=== PATIENT | female | born 1970 | race Caucasian/White ===

== ENCOUNTER → 2019-01-14 16:27 | Outpatient (CLI) | payer BC, SELFPAY ==
--- NOTE | 2019-01-14 16:39 | XR_ITS ---
PROCEDURE: XR FOOT WT BEARING LT 3V CLINICAL INDICATION: pain COMPARISON: No exams were available for comparison FINDINGS: No fracture or dislocation. No lytic or blastic change. There is normal mineralization. The joint spaces are well-preserved. No significant degenerative/arthritic changes. No erosive changes evident. Other findings:Mild pes planus IMPRESSION: Pes planus otherwise negative Dictated by: Tavo Werner MD 01/14/2019 16:55 <Electronically signed by Tavo Werner MD in [place]> 01/14/2019 16:55
--- NOTE | 2019-01-14 16:39 | XR_ITS ---
PROCEDURE: XR FOOT WT BEARING RT 3V CLINICAL INDICATION: pain COMPARISON: No exams were available for comparison FINDINGS: No fracture or dislocation. No lytic or blastic change. There is normal mineralization. The joint spaces are well-preserved. No significant degenerative/arthritic changes. No erosive changes evident. Other findings:None. IMPRESSION: Negative right foot Dictated by: Tavo Werner MD 01/14/2019 16:55 <Electronically signed by Tavo Werner MD in OV> 01/14/2019 16:56
== END ==
PROVIDERS: PCP Internal Medicine; Visit Provider Podiatrist
DX: M79.672 Pain in left foot (principal); M79.671 Pain in right foot
CPT/HCPCS: 73630

== ENCOUNTER 2024-03-22 16:53 | Emergency (ER) | payer BC, SELFPAY ==
[2024-03-22 17:05] VITALS: BP 162/93; PULSE 97; RESP 22; TEMP 37.2; O2SAT 94; BMI 30.7
--- NOTE | 2024-03-22 17:14 | ED_ITS ---
Discharge Plan Disposition Patient Disposition: Home, Self-Care Condition: Good Prescriptions Prescriptions: New prednisone 20 mg tablet 20 mg PO BID Qty: 10 0RF albuterol sulfate 90 mcg/actuation HFA aerosol inhaler 1 inh inhalation Q6H PRN (Reason: shortness of breath or wheezing) Qty: 6.7 0RF No Action levothyroxine 125 mcg tablet 125 mcg PO DAILY Patient Comments: TAKE 1 TABLET BY MOUTH ONCE DAILY losartan 25 mg tablet 25 mg PO DAILY Patient Comments: TAKE 1 TABLET BY MOUTH ONCE DAILY Referrals Follow up/Referrals: Kosta Mo [Primary Care Provider] - See instructions Activity Restrictions/Add. Instructions Additional Instructions/Restrictions: Tylenol and ibuprofen as needed for pain or fever Humidifier/vaporizer/hot steamy shower Follow-up with primary care tomorrow. Follow-up immediately in the ER of the [facility] for new or worsening symptoms or no noticeable improvement over the next 48-72 hours. Stop smoking Inhaler every 4-6 hours as needed. Should help open airways improved cough, wheezing, shortness of breath Start steroids today. Helps with inflammation therefore coughing and wheezing. Follow directions on package. Clinical Impressions Clinical Impression: Acute bronchitis Instructions Patient Instructions: DI for Acute Bronchitis Print Language Print Language: Barbadian Discharge ED Provider: Dian ([facility])Elpidio [facility] [place] HPI General Stated complaint: cough Mode of Arrival: Ambulatory Source of Information: Patient Limitations: No Limitations Time Seen by Provider: 03/22/24 17:08 Description of Symptoms (Recalled from Triage Doc. by RN): PATIENT C/O COUGH X 2 WEEKS HEENT Symptoms (Recalled from RN notes): No Resp Symptoms (Recalled from RN notes): Yes Skin Symptoms (Recalled from RN notes): No MS Symptoms (Recalled from RN notes): No Functional Status (Recalled from RN notes): WNL History of Present Illness Provider Complaint: 83-year-old female presents for cough for 2 weeks. Patient states that started out with chills and a fever but the fever only lasted for 2 days. Patient states since then she just had a persistent nonproductive cough. Related Data Home Medications ?Medication ?Instructions ?Recorded ?Confirmed levothyroxine 125 mcg tablet 125 mcg PO DAILY 03/22/24 03/22/24 losartan 25 mg tablet 25 mg PO DAILY 03/22/24 03/22/24 Previous Rx's ?Medication ?Instructions ?Recorded albuterol sulfate 90 mcg/actuation 1 inh inhalation Q6H PRN shortness 03/22/24 aerosol inhaler of breath or wheezing #6.7 grams prednisone 20 mg tablet 20 mg PO BID #10 tabs 03/22/24 Allergies Allergy/AdvReac Type Severity Reaction Status Date / Time fentanyl AdvReac Severe Verified 02/17/19 13:11 Worker's Comp Is this a Worker's Comp case?: No PFSH PFS Disclaimer: The information contained in this section may have been updated after the patient was seen, as this information can be updated by other users. Social History (Reviewed 03/22/24 @ 17:15 by Elpidio Biggs ([facility]), HELMINTHOLOGY TEACHER) Smoking Status: Never smoker alcohol intake: never current occupational status: employed Travel in the last 8 weeks: None ROS Obtained: Yes Systems reviewed as appropriate & no additional complaints except as documented Constitutional Constitutional: Reports system reviewed and no additional complaints, except as documented, Reports as per HPI and Reports fever(s) Respiratory Respiratory: Reports system reviewed and no additional complaints, except as documented, Reports as per HPI, Reports cough and Reports non-productive cough Physical Exam General General appearance: alert and in no apparent distress Head Head exam: atraumatic Eye Eye exam: Present normal appearance and PERRL ENT ENT exam: Present normal exam, normal oropharynx, mucous membranes moist and TM's normal bilaterally Respiratory Respiratory exam: Present wheezes Cardiovascular Cardiovascular exam: Present regular rate and normal rhythm Neurological Exam Neurological exam: Present alert and oriented X3 Skin Skin exam: Present warm and intact Medical Decision Making Medical Records Medical records reviewed: Yes I reviewed the patient's medical records. Screening: Per USPSTF and CDC recommendations, given the prevalence of disease in our region, it is our hospital?s policy to screen for HIV and viral Hepatitis for all patients aged 18 and over and those with ongoing risk factors. Jae Inquiry Pt receiving controlled substance: No Jae was queried for this patient: No Vital Signs: 03/22/24 17:05 Temperature 98.9 F Temperature Source Oral Pulse Rate [Left Brachial] 97 H Respiratory Rate 22 Blood Pressure [Left Arm] 162/93 H Blood Pressure Mean [Left Arm] 116 Blood Pressure Source [Left Arm] Automatic Cuff Blood Pressure Position [Left Arm] Sitting 02 Sat by Pulse Oximetry 94 L Oxygen Delivery Method Room Air
[2024-03-22 17:22] VITALS: BP 162/93; PULSE 97; RESP 22; TEMP 37.2; O2SAT 94
== END 2024-03-22 17:26 | disposition home or self-care (01) ==
PROVIDERS: Emergency Provider Nurse Practitioner Family; PCP Internal Medicine
DX: J20.9 Acute bronchitis, unspecified (principal)
CPT/HCPCS: 99213; G0381

== ENCOUNTER 2024-05-03 15:28 | Emergency (ER) | payer BC, SELFPAY ==
[2024-05-03 17:20] VITALS: BP 147/81; PULSE 93; RESP 17; TEMP 36.9; O2SAT 97; BMI 30.9
--- NOTE | 2024-05-03 17:31 | EXP.UTC ---
Discharge Plan Disposition Patient Disposition: Home, Self-Care Condition: Good Prescriptions Prescriptions: New polymyxin B sulf-trimethoprim 10,000 unit- 1 mg/mL drops 2 drp Eye-Both Q6 7 Days Qty: 10 0RF Rx Instructions: right eye while awake; do not exceed 6 doses in 24 hours No Action levothyroxine 125 mcg tablet 125 mcg PO DAILY Patient Comments: TAKE 1 TABLET BY MOUTH ONCE DAILY losartan 25 mg tablet 25 mg PO DAILY Patient Comments: TAKE 1 TABLET BY MOUTH ONCE DAILY prednisone 20 mg tablet 20 mg PO BID Qty: 10 0RF albuterol sulfate 90 mcg/actuation HFA aerosol inhaler 1 inh inhalation Q6H PRN (Reason: shortness of breath or wheezing) Qty: 6.7 0RF Referrals Follow up/Referrals: Kosta Mo [Primary Care Provider] - See instructions Activity Restrictions/Add. Instructions Additional Instructions/Restrictions: Wash hands before and after applying eye drops Clean matting from eye with warm water and baby shampoo Use drops as directed Follow up with your Eye Doctor in the next 24-48 hours if no improvement or any worsening of symptoms Clinical Impressions Clinical Impression: Conjunctivitis Qualifiers: Conjunctivitis type: unspecified Laterality: right Qualified Code(s): H10.9 - Unspecified conjunctivitis Instructions Patient Instructions: How to Put in Eye Drops, Conjunctivitis, DI for Conjunctivitis Print Language Print Language: Egyptian Discharge ED Provider: Tahmina Irwin [facility] General Stated complaint: pink and red right eye with swelling Time Seen by Provider: 05/03/24 17:31 History of Present Illness Provider Complaint: Patient states that her right eye was fine when she laid down last night States that she woke up this morning with it swollen, red, matted and draining States today it is looking more red and draining Denies known injury Denies feeling of FB report did have a URI last week Related Data Home Medications ?Medication ?Instructions ?Recorded ?Confirmed levothyroxine 125 mcg tablet 125 mcg PO DAILY 03/22/24 03/22/24 losartan 25 mg tablet 25 mg PO DAILY 03/22/24 03/22/24 Previous Rx's ?Medication ?Instructions ?Recorded albuterol sulfate 90 mcg/actuation 1 inh inhalation Q6H PRN shortness 03/22/24 aerosol inhaler of breath or wheezing #6.7 grams prednisone 20 mg tablet 20 mg PO BID #10 tabs 03/22/24 polymyxin B sulfate 10,000 2 drp Eye-Both Q6 7 days #10 mL 05/03/24 unit-trimethoprim 1 mg/mL eye drops Allergies Allergy/AdvReac Type Severity Reaction Status Date / Time fentanyl AdvReac Severe Verified 02/17/19 13:11 [facility] Disclaimer: The information contained in this section may have been updated after the patient was seen, as this information can be updated by other users. Social History , [employer]) Smoking Status: Never smoker alcohol intake: never current occupational status: employed Travel in the last 8 weeks: None Have you lived/traveled outside US in past 30 days?: No Contact w/someone who lives/traveled outside US past 30 days?: No Exposure to someone with infectious disease in past 14 days?: No Do you have a fever (greater than 100.4 F or 38 C)?: No Have you tested positive for COVID-19: No Exposed to someone with COVID-19 in past 14 days?: No Do you have a sore throat?: Yes Do you have a cough?: Yes Do you have any weakness?: No Do you have any diarrhea?: No Are you experiencing any unusual bleeding?: No Do you have any muscle aches/pain?: No Do you have any abdominal pain?: No Are you experiencing loss of taste or smell?: No ROS Obtained: Yes All systems reviewed & no additional complaints except as documented and Yes Systems reviewed as appropriate & no additional complaints except as documented Constitutional Constitutional: Reports system reviewed and no additional complaints, except as documented and Reports as per HPI Eyes Eyes: Reports system reviewed and no additional complaints, except as documented, Reports as per HPI, Reports eye discharge (watering and matting from right eye) and Reports irritation (redness and matting to right) ENT Ears, Nose, Mouth, and Throat: Reports system reviewed and no additional complaints, except as documented and Reports as per HPI Cardiovascular Cardiovascular: Reports system reviewed and no additional complaints, except as documented and Reports as per HPI Respiratory Respiratory: Reports system reviewed and no additional complaints, except as documented and Reports as per HPI Gastrointestinal Gastrointestingal: Reports system reviewed and no additional complaints, except as documented and as per HPI Physical Exam General General appearance: alert and in no apparent distress Eye Eye exam: Present conjunctival redness (redness noted to right eye denies injury or feeling of FB) and discharge (right) Respiratory Respiratory exam: Present normal lung sounds bilaterally; Absent respiratory distress or wheezes Cardiovascular Cardiovascular exam: Present regular rate, normal rhythm and normal heart sounds Abdominal Exam Abdominal exam: Present soft and normal bowel sounds; Absent distention or tenderness Neurological Exam Neurological exam: Present alert, oriented X3 and normal gait Medical Decision Making Medical Records Screening: Per USPSTF and CDC recommendations, given the prevalence of disease in our region, it is our hospital?s policy to screen for HIV and viral Hepatitis for all patients aged 18 and over and those with ongoing risk factors. Jae Inquiry Pt receiving controlled substance: No Jae was queried for this patient: No
[2024-05-03 17:45] VITALS: BP 147/81; PULSE 93; RESP 17; TEMP 36.9; O2SAT 97
== END 2024-05-03 17:47 | disposition home or self-care (01) ==
PROVIDERS: Emergency Provider Nurse Practitioner; PCP Internal Medicine
DX: H10.9 Unspecified conjunctivitis (principal)
CPT/HCPCS: 99213; G0381

== ENCOUNTER 2024-05-09 10:58 | Emergency (ER) | payer BC, SELFPAY ==
[2024-05-09 12:08] VITALS: BP 163/103; PULSE 110; RESP 20; TEMP 36.9; O2SAT 96; BMI 30.4
--- NOTE | 2024-05-09 12:11 | EXP.UTC ---
Discharge Plan Disposition Patient Disposition: Home, Self-Care Condition: Good Prescriptions Prescriptions: New azithromycin [Zithromax] 250 mg tablet 250 mg PO UD DOSE PK Qty: 6 0RF Rx Instructions: Take two (2) tablets today, then one (1) tablet days #2 thru #5 prednisone 20 mg tablet 20 mg PO BID 3 Days Qty: 6 0RF benzonatate 100 mg capsule 100 mg PO TIDP PRN (Reason: Cough) Qty: 30 0RF No Action levothyroxine 125 mcg tablet 125 mcg PO DAILY Patient Comments: TAKE 1 TABLET BY MOUTH ONCE DAILY losartan 25 mg tablet 25 mg PO DAILY Patient Comments: TAKE 1 TABLET BY MOUTH ONCE DAILY Referrals Follow up/Referrals: Kosta Mo [Primary Care Provider] - See instructions Activity Restrictions/Add. Instructions Additional Instructions/Restrictions: Drink plenty of fluids. Take tylenol or ibuprofen for pain or fever. Take the medications as directed. Follow up with your regular doctor. GO TO THE ER FOR ANY WORSENING SYMPTOMS Follow up with your eye doctor if you continue to have the eye redness and irritation. Clinical Impressions Clinical Impression: Sinusitis, Pharyngitis, Acute viral syndrome Instructions Patient Instructions: Sinusitis, DI for Pharyngitis/Tonsillopharyngitis -- Adult, DI for Sinusitis Print Language Print Language: New Zealander Discharge ED Provider: Froilan Alicea [facility] General Stated complaint: soa diff swallowing swollen eyes Mode of Arrival: Ambulatory Source of Information: Patient Time Seen by Provider: 05/09/24 12:11 Description of Symptoms (Recalled from Triage Doc. by RN): ITCHY, RED, SWOLLEN EYES, SCRATCHY THROAT, SNOTTY NOSE HEENT Symptoms (Recalled from RN notes): Yes Resp Symptoms (Recalled from RN notes): No Skin Symptoms (Recalled from RN notes): No MS Symptoms (Recalled from RN notes): No Functional Status (Recalled from RN notes): WNL Related Data Home Medications ?Medication ?Instructions ?Recorded ?Confirmed levothyroxine 125 mcg tablet 125 mcg PO DAILY 03/22/24 05/09/24 losartan 25 mg tablet 25 mg PO DAILY 03/22/24 05/09/24 Previous Rx's ?Medication ?Instructions ?Recorded azithromycin 250 mg tablet 250 mg PO UD DOSE PK #6 tabs 05/09/24 (Zithromax) benzonatate 100 mg capsule 100 mg PO TIDP PRN Cough #30 caps 05/09/24 prednisone 20 mg tablet 20 mg PO BID 3 days #6 tabs 05/09/24 Allergies Allergy/AdvReac Type Severity Reaction Status Date / Time fentanyl AdvReac Severe Verified 02/17/19 13:11 Worker's Comp Is this a Worker's Comp case?: No [facility] Disclaimer: The information contained in this section may have been updated after the patient was seen, as this information can be updated by other users. Social History (Reviewed 03/22/24 @ 17:15 by Elpidio Biggs ([facility]), [employer]) Smoking Status: Never smoker alcohol intake: never current occupational status: employed Travel in the last 8 weeks: None Have you lived/traveled outside US in past 30 days?: No Contact w/someone who lives/traveled outside US past 30 days?: No Exposure to someone with infectious disease in past 14 days?: Yes Do you have a fever (greater than 100.4 F or 38 C)?: No Have you tested positive for COVID-19: No Exposed to someone with COVID-19 in past 14 days?: No Do you have a sore throat?: Yes Do you have a cough?: No Do you have any weakness?: No Do you have any diarrhea?: No Are you experiencing any unusual bleeding?: No Do you have any muscle aches/pain?: No Do you have any abdominal pain?: No Are you experiencing loss of taste or smell?: No ROS Obtained: Yes All systems reviewed & no additional complaints except as documented Constitutional Constitutional: Reports chills and Reports fever(s) Eyes Eyes: Denies eye discharge ENT Ears, Nose, Mouth, and Throat: Reports as per HPI Cardiovascular Cardiovascular: Denies chest pain Respiratory Respiratory: Denies chest congestion and Reports cough Gastrointestinal Gastrointestingal: Reports nausea; Denies abdominal pain, constipation, cramping, diarrhea or vomiting Musculoskeletal Musculoskeletal: Denies arthralgias Integumentary/Breasts Skin/Breast: Denies rash Neurologic Neurologic: Denies paresthesias Physical Exam General General appearance: alert and in no apparent distress Head Head exam: atraumatic, normocephalic and normal inspection Eye Eye exam: Present normal appearance, PERRL and EOMI ENT ENT exam: Present mucous membranes moist and normal external ear exam Expanded ENT Exam TM/Canal exam: Bilateral TM: erythema and bulging Nose exam: Absent sinus tenderness Mouth exam: Present normal external inspection; Absent drooling Teeth exam: Present normal inspection Throat exam: Present tonsillar erythema, tonsillomegaly and tonsillar exudate Neck Neck exam: Present normal inspection, full ROM and trachea midline; Absent tenderness, meningismus or lymphadenopathy Chest Chest inspection: Present normal inspection and symmetric chest wall rise; Absent tenderness Respiratory Respiratory exam: Present normal lung sounds bilaterally; Absent respiratory distress, wheezes, stridor or accessory muscle use Cardiovascular Cardiovascular exam: Present regular rate and normal rhythm; Absent systolic murmur or diastolic murmur Abdominal Exam Abdominal exam: Present soft and normal bowel sounds; Absent distention, tenderness, guarding, rebound or rigidity Extremities Exam Extremities exam: Present normal inspection and normal capillary refill; Absent calf tenderness Back Exam Back exam: Present normal inspection and full ROM; Absent tenderness, CVA tenderness (R) or CVA tenderness (L) Neurological Exam Neurological exam: Present alert, oriented X3 and CN II-XII intact Psychiatric Psychiatric exam: Present normal affect and normal mood Skin Skin exam: Present warm, dry, intact and normal color Medical Decision Making Medical Records Medical records reviewed: No I reviewed the patient's medical records. Screening: Per USPSTF and CDC recommendations, given the prevalence of disease in our region, it is our hospital?s policy to screen for HIV and viral Hepatitis for all patients aged 18 and over and those with ongoing risk factors. Jae Inquiry Pt receiving controlled substance: No Vital Signs: 05/09/24 12:08 Temperature 98.4 F Temperature Source Oral Pulse Rate [Left Brachial] 110 H Respiratory Rate 20 Blood Pressure [Left Arm] 163/103 H Blood Pressure Mean [Left Arm] 123 02 Sat by Pulse Oximetry 96 Lab Data Lab results reviewed: Yes I reviewed the patient's lab results.
[2024-05-09 12:18] LABS: UTC Strep Screen (Rapid) Negative (Negative)
[2024-05-09 12:19] VITALS: BP 163/103; PULSE 110; RESP 20; TEMP 36.9
== END 2024-05-09 13:19 | disposition home or self-care (01) ==
PROVIDERS: Emergency Provider Nurse Practitioner Family; PCP Internal Medicine
DX: J01.90 Acute sinusitis, unspecified (principal); J02.9 Acute pharyngitis, unspecified; B34.9 Viral infection, unspecified; R50.9 Fever, unspecified; R05.9 Cough, unspecified; R11.0 Nausea
CPT/HCPCS: 87880; 99212; G0381

== ENCOUNTER 2024-12-23 12:11 | Outpatient (CLI) | payer BC, SELFPAY ==
--- OUTSIDE RECORDS SUMMARY | 2020-12-27 16:30 | XMS_ITS | Encounter Summary ---
[facility] Organization [facility] Address [address] [place] [address] Care Team Providers Care Business Office Coordinator Name Role Phone Kosta Mo MD Primary Care Provider [phone] Reason for Visit * Diagnostic Imaging (Routine) - Closed Specialty Diagnoses / Procedures Referred By Contac t Referred To Contact Radiology Diagnoses Papillary thyroid carcinoma Procedures US Thyroid Garrick Wayne MD [address] [address] Phone: tel: fax: [facility] 3084 [facility] [address] [place] [phone] Phone: tel: fax: Referral ID Status Reason Start Date Expiration Date Visits Re quested Visits Authorized [id number] Closed 12/27/2020 12/27/2021 1 1 Encounter Details Date Type Department Care Team (Late st Contact Info) Description 12/27/2020 4:30 PM EDT Hospital Encounter [facility] 3084 [facility] [address] [place] [phone] Social History Tobacco Use Types Packs/Day [...] Description 02/17/2025 3:45 PM EDT Office Visit [facility] ENDOCR[facility] [address] [phone] Garrick Wayne MD [address] [phone] 09/15/2025 3:00 PM EDT Office Visit [facility] CARDI[facility] [address] [place] [address] Tati Hurd APRN [address] [place] [address] documented as of this encounter Procedures Procedure Name Priority Date/Time Associated Diagnosis Comments US THYROID Routine 12/27/2020 4:30 PM EDT Papillary thyroid carcinoma documented in this encounter Results * US Thyroid (12/27/2020 4:30 PM EDT) Narrative SYSTEMGENERATED, DOCUMENTATION - 12/27/2020 4:30 PM EDT Please see performing physician's note for result. us Garrick Wayne MD [facility] [place] US ORDERABLES Final R esult documented in this encounter Visit Diagnoses Not on filedocumented in this encounter Care Teams Business Office Coordinator Relationship Specialty Start Date End Date Kosta Mo MD [address] [place] [address] [place] [address] PCP - General Internal Medicine 09/18/18 documented as of this encounter
--- OUTSIDE RECORDS SUMMARY | 2022-01-01 16:04 | XMS_ITS | Encounter Summary ---
[facility] Address [address] [place] [address] Care Team Providers Care Employment Advisor Name Role Phone Kosta Mo MD Primary Care Provider [phone] Reason for Visit * Diagnostic Imaging (Routine) - Closed Specialty Diagnoses / Procedures Referred By Contac t Referred To Contact Radiology Diagnoses Papillary thyroid carcinoma Procedures US Thyroid Garrick Wayne MD [address] [address] Phone: tel: fax: [facility] [address] [address] Phone: tel: fax: Referral ID Status Reason Start Date Expiration Date Visits Re quested Visits Authorized [id number] Closed 01/01/2022 01/01/2023 1 1 Encounter Details Date Type Department Care Team (Late st Contact Info) Description 01/01/2022 4:04 PM EDT Hospital Encounter [facility] 3084 [facility] [address] [place] [phone] Social History Tobacco Use Types Packs/Day [...] Description 02/17/2025 3:45 PM EDT Office Visit [facility] [address] [phone] Garrick Wayne MD [address] [phone] 09/15/2025 3:00 PM EDT Office Visit [facility] CARDI[facility] [address] [place] [phone] Tati Hurd APRN [address] [place] [address] documented as of this encounter Procedures Procedure Name Priority Date/Time Associated Diagnosis Comments US THYROID Routine 01/01/2022 4:04 PM EDT Papillary thyroid carcinoma documented in this encounter Results * US Thyroid (01/01/2022 4:04 PM EDT) Narrative SYSTEMGENERATED, DOCUMENTATION - 01/01/2022 4:04 PM EDT Please see performing physician's note for result. us Garrick Wayne MD [facility] US ORDERABLES Final R esult documented in this encounter Visit Diagnoses Not on filedocumented in this encounter Care Teams Employment Advisor Relationship Specialty Start Date End Date Kosta Mo MD [address] [place] [address] [place] [address] PCP - General Internal Medicine 09/18/18 documented as of this encounter
--- OUTSIDE RECORDS SUMMARY | 2023-01-01 16:14 | XMS_ITS | Encounter Summary ---
[facility] Address [address] [place] [address] Care Team Providers Care Healthcare Receptionist Name Role Phone Kosta Mo MD Primary Care Provider [phone] Reason for Visit * Diagnostic Imaging (Routine) - Closed Specialty Diagnoses / Procedures Referred By Contac t Referred To Contact Radiology Diagnoses Papillary thyroid carcinoma Procedures US Thyroid Garrick Wayne MD [address] [address] Phone: tel: fax: Referral ID Status Reason Start Date Expiration Date Visits Re quested Visits Authorized [id number] Closed 01/01/2023 01/01/2024 1 1 Encounter Details Date Type Department Care Team (Late st Contact Info) Description 01/01/2023 4:14 PM EDT Hospital Encounter [facility] [address] [phone] Social History Tobacco Use Types [...] Description 02/17/2025 3:45 PM EDT Office Visit [facility] [address] [facility] [address] [place] [address] Garrick Wayne MD 3084 [facility] [address] [place] [address] 09/15/2025 3:00 PM EDT Office Visit [facility] C[facility] [address] [place] [address] Tati Hurd APRN [address] [place] [address] documented as of this encounter [...] on filedocumented in this encounter Care Teams Healthcare Receptionist Relationship Specialty Start Date End Date Kosta Mo MD [address] [place] [address] PCP - General Internal Medicine 09/18/18 documented as of this encounter
--- OUTSIDE RECORDS SUMMARY | 2024-01-21 15:54 | XMS_ITS | Encounter Summary ---
Author Organization [facility] Address [address] [place] [address] Care Team Providers Care Organ Pipe Maker Metal Name Role Phone Kosta Mo MD Primary Care Provider [phone] Reason for Visit * Diagnostic Imaging (Routine) - Closed Specialty Diagnoses / Procedures Referred By Contac t Referred To Contact Radiology Diagnoses Papillary thyroid carcinoma Procedures US Thyroid Garrick Wayne MD [address] [address] Phone: tel: fax: Referral ID Status Reason Start Date Expiration Date Visits Re quested Visits Authorized [id number] Closed 01/21/2024 01/20/2025 1 1 Encounter Details Date Type Department Care Team (Late st Contact Info) Description 01/21/2024 3:54 PM EDT Hospital Encounter [facility] [address] [phone] Social History Tobacco Use Types [...] Description 02/17/2025 3:45 PM EDT Office Visit [facility] 3084 [facility] [address] [place] [address] Garrick Wayne MD 3084 [facility] [address] [place], [place] [phone] 09/15/2025 3:00 PM EDT Office Visit [facility] CARDI[facility] [address] [place] [address] Tati Hurd APRN [address] [place] [address] documented as of this encounter Procedures Procedure Name Priority Date/Time Associated Diagnosis Comments US THYROID Routine 01/21/2024 3:54 PM EDT Papillary thyroid carcinoma documented in this encounter Results * US Thyroid (01/21/2024 3:54 PM EDT) Narrative SYSTEMGENERATED, DOCUMENTATION - 01/21/2024 3:54 PM EDT Please see performing physician's note for result. us Garrick Wayne MD IMG US ORDERABLES Final R esult documented in this encounter Visit Diagnoses Not on filedocumented in this encounter Care Teams Organ Pipe Maker Metal Relationship Specialty Start Date End Date Kosta Mo MD [address] [place] [address] [place] [address] PCP - General Internal Medicine 09/18/18 documented as of this encounter
[2024-12-23 18:50] LABS: Alanine Aminotransferase 23 U/L (12-78); Albumin Level 4.4 g/dl (3.5-5.0); Albumin/Globulin Ratio 1.6 (1.1-1.8); Alkaline Phosphatase 121 U/L (38-126); Anion Gap 10.2 mEq/L (5-15); Aspartate Amino Transferase 29 U/L (14-36); Bilirubin,Total 0.4 mg/dl (0.2-1.3); Blood Urea Nitrogen 14 mg/dl (7-17); Calcium 9.4 mg/dl (8.4-10.2); Carbon Dioxide 29 mmol/L (22.0-30.0); Chloride 104 mmol/L (98-107); Creatinine,Serum 0.60 mg/dl (0.52-1.04); Estimated Glomerular Filt Rate 105 ml/min (>60); GFR (African American) 127 ML/MIN (>60); Globulin 2.8 g/dL (1.3-3.2); Glucose 72 mg/dl (74-100); Potassium 4.2 mmoL/L (3.5-5.1); Sodium 139 mmol/L (136-145); Total Protein,Serum 7.2 g/dl (6.3-8.2)
--- OUTSIDE RECORDS SUMMARY | 2024-12-25 12:13 | XMS_ITS | Clinical Summary ---
Author Organization [employer] ([place], [place], [place], [place]) Address [address] [place] [address] Care Team Providers Care Sling Operator Name Role Phone Unavailable Primary Care Provider Unavailabl e Social History Tobacco Use Types Packs/Day Years Used Date Smoking Tobacco: Never Assessed Comments Unknown Sex and Gender Information Value Date Recorded Sex Assigned at Female 11/07/2021 5:55 PM CDT Legal Sex Female 5:55 PM CDT Gender Identity Female 11/07/2021 5:55 PM CDT Sexual Orientation Not on file Plan of Treatment Not on file
--- OUTSIDE RECORDS SUMMARY | 2024-12-25 12:13 | XMS_ITS | Referral Summary ---
Author Organization [facility] ([place], [place], [place], [place]) Address [address] [place] [address] Care Team Providers Care Passenger Vessel Chef Name Role Phone Unavailable Primary Care Provider [...]
--- OUTSIDE RECORDS SUMMARY | 2024-12-25 12:13 | XMS_ITS | Encounter Summary ---
Author Organization [facility] Address [address] [place] [address] Care Team Providers Care Associate Material Handler Name Role Phone Kosta Mo MD Primary Care Provider [phone] Encounter Details Date Type Department Care Team (Late Contact Info) Description 08/28/2022 Telephone [facility] [address] [place] [address] Kosta Mo MD [address] [place] [id number] Social History Tobacco Use Types Packs/Day Years Used Date Smoking Tobacco: Never Smokeless Tobacco: Never Alcohol Use Standard [...] PHQ-9: Brief Depression Severity Measure Score 0 03/22/2022 Comments No Sex and Gender Information Value Date Recorded Sex Assigned at Not on file Legal Sex Female 3:13 PM EDT Gender Identity Not on file Sexual Orientation Not on file documented as of this encounter Plan of Treatment Upcoming Encounters Date Type Department Care Team (Late Contact Info) Description 02/17/2025 3:45 PM EDT Office Visit [facility] ENDOCRINOLOGY [address] [facility] [address] [place] [id number] Garrick Wayne MD [address] [address] 09/15/2025 3:00 PM EDT Office Visit [facility] CARDIOLOGY [address] [place] [address] Tati Hurd APRN [address] [place] [address] documented as of this encounter Visit Diagnoses Not on filedocumented in this encounter Care Teams Associate Material Handler Relationship Specialty Start Date End Date Kosta Mo MD [address] [place] [address] PCP - General Internal Medicine 09/18/18 documented as of this encounter
--- OUTSIDE RECORDS SUMMARY | 2024-12-25 12:13 | XMS_ITS | Clinical Summary ---
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 Medications Lysine HCl 500 MG tablet Take 1,000 mg by mouth Daily. TAKES MORE FREQUENTLY IN THE WINTER MONTHS THAN IN SUMMER Active Multiple Vitamins-Minerals (MULTIVITAMIN WOMEN) tablet Take 1 tablet by mouth Daily. Active Calcium Carbonate-Vit D-Min (Caltrate 600+D Plus Minerals) 600-800 MG-UNIT chewable tablet Chew 2 (Two) Times a Day. Active Biotin 1 MG capsule Take by mouth. Activ e levothyroxine (SYNTHROID, LEVOTHROID) 125 MCG tablet Take 1 tablet by mouth once daily 90 tablet 3 5 Active losartan (COZAAR) 25 MG tabletIndications :Essential hypertension Take 1 tablet by mouth once daily 30 tablet 6 5 Active Active Problems Problem Noted Date Diagnosed Date Laboratory examination order ed as part of a routine general medical examination 09/15/2024 Assessment & Plan (09/15/2024 4:09 PM EDT): She is due for annual labs Essential hypertension 09/04/2023 Assessment & Plan (09/15/2024 3:58 PM EDT): Hypertension is stable and controlled Continue current treatment regimen. Dietary sodium restriction. Weight loss. Regular aerobic exercise. Blood pressure will be reassessed in 1 year. -Continue Losartan at current dose Assessment & Plan (10/30/2023 4:13 PM EDT): Hypertension is improving. Medication changes per orders. Dietary sodium restriction. Weight loss. Regular aerobic exercise. Ambulatory blood pressure monitoring. BP has improved since starting losartan, average is 130s over 70s. She will occasionally have an elevated reading around 140s/80s. She is tolerating losartan without any side effects. Her blood pressure is currently stable but she thinks it will likely increase when school starts back in December. We discussed likely increasing dose to 1-1/2 tablets daily. - Increase losartan to 37.5mg daily - Continue to monitor blood pressure at home Assessment & Plan (09/04/2023 4:13 PM EDT): Patient has new onset Hypertension. Ambulatory BP monitoring Medication changes per orders. Dietary sodium restriction. Advised to check BP regularly and call office if frequently >140/90 Blood pressure will be reassessed in 4 weeks. Patient's blood pressure has been consistently elevated for the last several months. It averages 140s-160s over 80s. Initial blood pressure today was 136/70, however, patient states that it usually never that low. Repeat blood pressure was 162/80. -Trial of losartan 25 mg once daily - Check blood pressure daily and keep a log of readings. - Follow-up in 1 month (patient will send me her BP log for review). Acquired hypothyroidism 03/21/2022 Hyperlipidemia 03/21/2022 Assessment & Plan (09/15/2024 3:57 PM EDT): Update lipid panel Prediabetes 03/21/2022 Localized osteoporosis witho ut current pathological fracture 03/21/2022 Papillary thyroid carcinoma 05/11/2020 Assessment & Plan (07/22/2024 4:03 PM EDT): Intermediate risk for recurrence. Neck exam okay today. Plan for TG and neck u/s in 6 months. Assessment & Plan (01/21/2024 3:55 PM EDT): Check TG. Will send note about results. A neck u/s was performed today. This revealed clear thyroid bed with no masses. No abnormal lymph nodes were seen. Assessment & Plan (07/09/2023 4:06 PM EST): No evidence of recurrence thus far. Plan for TG and neck u/s next visit. Assessment & Plan (01/01/2023 4:18 PM EDT): Check TG today. Will send note about results. A neck u/s was performed today. This revealed clear thyroid bed with no masses. No abnormal lymph nodes were seen. Assessment & Plan (07/04/2022 4:05 PM EST): No evidence of recurrence at this time. Plan for TG and neck u/s in 6 months. Assessment & Plan (01/01/2022 4:05 PM EDT): Check TG today. A neck u/s was performed today. This revealed clear thyroid bed with no masses. No abnormal lymph nodes were seen. Assessment & Plan (07/04/2021 4:32 PM EST): Plan for neck u/s and TG next visit. Assessment & Plan (12/27/2020 4:40 PM EDT): Check TG today. Will send note about results. A neck u/s was performed today. This revealed clear thyroid bed with no masses. No abnormal lymph nodes were seen. Assessment & Plan (08/23/2020 4:23 PM EDT): Negative WBS after thyrogen stimulation about 3 months ago. Plan to check TG next visit. Assessment & Plan (05/11/2020 1:02 PM EST): Plan for WBS and stimulated TG soon. Postoperative hypothyroidism 05/11/2020 Assessment & Plan (07/22/2024 4:04 PM EDT): Continue levothyroxine treatment. Check TFTs today. Assessment & Plan (01/21/2024 3:54 PM EDT): Continue T4 tx. Check TFTs today. Assessment & Plan (07/09/2023 4:06 PM EST): Continue T4 tx. Check TFTs. Will send note about results. Assessment & Plan (01/01/2023 4:18 PM EDT): Continue T4 tx. Check TSH today. Will send note about results. Assessment & Plan (07/04/2022 4:05 PM EST): Continue T4 tx. Check TFTs today. Assessment & Plan (01/01/2022 4:05 PM EDT): Continue T4 tx. Check TFTs today. Will send note about results. Assessment & Plan (07/04/2021 4:32 PM EST): Continue T4 tx. Check TFTs today. Assessment & Plan (12/27/2020 4:41 PM EDT): Continue T4. Check TFTs today. Assessment & Plan (08/23/2020 4:23 PM EDT): Continue T4. Check TFTs. Assessment & Plan (05/11/2020 1:12 PM EST): Check TFTs today. ADITYA on CPAP 09/23/2018 Assessment & Plan (09/15/2024 3:57 PM EDT): She is doing very well on PAP therapy with excellent control and compliance. Download reviewed and interpreted today. Compliance is 100%, average use per night is 7 hours and 13 minutes. AHI is 2.2. -Continue PAP therapy at current settings -Do not drive if sleepy -Follow up in 1 year Assessment & Plan (10/30/2023 4:07 PM EDT): Patient recently received a new Resmed CPAP device and is here today for a 31-90-day compliance visit. Download reviewed and interpreted today. Compliance is 100%, when used >4 hours is 100%. Average use per night is 7 hours and 38 minutes. AHI is 2. - Continue PAP therapy at current settings - Follow-up in 1 year Assessment & Plan (09/04/2023 4:10 PM EDT): Patient is doing very well on PAP therapy with good control and compliance. Download shows 100% compliance with an AHI of 2.6. She is using a DreamStation 2 replacement device, we discussed recent FDA warning regarding the possibility of the devices overheating. She would like to replace her current CPAP device. - Order for new ResMed CPAP device sent to [facility], continue current settings. - Follow-up in 2 months for a 31-90-day compliance visit Assessment & Plan (09/06/2022 4:34 PM EDT): Doing well on PAP therapy with good control compliance. 100% compliance, AHI 2.6. Download reviewed and interpreted. Per download the humidification setting has been turned off. Patient has noticed increase in nasal dryness. New PAP therapy prescription sent to [facility], pressure changes to 6 to 13 cm. We will follow-up in 3 months to reassess how she is doing with pressure change. Myofascial pain 09/23/2018 DDD (degenerative disc disease), cervical 2018 Herniation of cervical inter vertebral disc with radiculopathy 09/22/2018 Encounters Date Type Department Care Team Description 10/09/2024 Refill [facility] CARDIOLOGY [address] [place] [address] Leeann Lopez APRN Med Refill from Last 3 Months Immunizations Immunization Administration Dates Next Due Influenza TIV (IM) 03/16/2021,02/29/2020, 019 Tdap 02/29/2020 Family History Medical History Relation Name Comments Brain cancer Brother Christian No Known Problems Father No Known Problems Mother Relation Name Status Comments Brother Christian Alive Father Alive Mother Alive Social History Tobacco Use Types Packs/Day Years Used Date Smoking Tobacco: Never Passive Smoke Exposure: Never Smokeless Tobacco: Never Tobacco Cessation:Counseling Given: Not Answered Alcohol Use Standard Drinks/Week Comments Never 0 [...] on file Sexual Orientation Not on file Last Filed Vital Signs Vital Sign Reading Time Taken Comments Blood Pressure 134/80 09/15/2024 3:19 PM EDT Pulse 87 09/15/2024 3:19 PM EDT Temperature 36.4 C (97.6 F) 09/19/2022 8:43 AM EDT Respiratory Rate 14 12/27/2020 3:49 PM EDT Oxygen Saturation 96% 09/15/2024 3:19 PM EDT Inhaled Oxygen Concentration - - Weight 83 kg (183 lb) 09/15/2024 3:19 PM EDT Height 162.6 cm (5' 4 ) 09/15/2024 3:19 PM EDT Body Mass Index 31.41 09/15/2024 3:19 PM EDT Plan of Treatment Upcoming Encounters Date Type Department Care Team (Late st Contact Info) Description 02/17/2025 3:45 PM EDT Office Visit [facility] ENDOCRINOLOGY [address] [facility] [address] [place] [id number] Garrick Wayne MD [address] [place] [address] [place] [address] 09/15/2025 3:00 PM EDT Office Visit [facility] CARDIOLOGY [address] [place] [address] Tati Hudr APRN [address] [place] [address] Health Maintenance Due Date Last Done Comments COLOGUARD 2016 COLON CANCER SCREENING 5 YEA R SIGMOID[address]COPY [address] COLONOGRAPHY 2016 FECAL OCCULT BLOOD TEST 2016 FIT Testing (1 year) 2016 Pneumococcal Vaccine 50+ (1 of 1 - PCV) 2021 ZOSTER VACCINE (1 of 2) 2021 ANNUAL PHYSICAL 03/22/2023 03/22/2022 Annual Gynecologic Pelvic an d Breast Exam 03/23/2023 03/22/2022 COVID-19 Vaccine ( season) 2024 MAMMOGRAM 03/29/2024 03/29/2022, 03/14/2021 INFLUENZA VACCINE 02/10/2025 03/16/2021, , 02/23/2019 LIPID PANEL 10/23/2025 10/23/2024, 03/22/2022 COLONOSCOPY 04/08/2029 04/08/2019 COLORECTAL CANCER SCREENING 04/08/2029 TDAP/TD VACCINES (2 - Td or Tdap) 02/28/2030 020 HEPATITIS C SCREENING Completed 03/22/2022 Medical Devices Implanted Type Area Utilities Service Investigator Device Identifier Shelf Expiration Date Model / Serial / Lot Bone Lordotic Asr [id number] Fzd - [id number] - [id number] Implanted:Qty : 1 on 11/10/2018 by Kraig Swanson MD at [facility] Implant N/A: Spine Cervical [employer] 01/15/2021 [id number] / [id number] / [id number] Scrw St Zevo 2thrd S/Tap 3.5x13mm - [id number] Implanted:Qty : 4 on 11/10/2018 by Kraig Swanson MD at [facility] Implant N/A: Spine Cervical [employer] [id number] / / . Plt Cerv Ant Zevo 1lvl 17mm - [id number] Implanted:Qty : 1 on 11/10/2018 by Kraig Swanson MD at [facility] Implant N/A: Spine Cervical [employer] [id number] / / . Procedures Procedure Name Priority Date/Time Associated Diagnosis Comments CBC AND DIFFERENTIAL Routine 10/23/2024 Laboratory examination ordered as part of a routine general medical examination LIPID PANEL Routine 10/23/2024 Laboratory examination ordered as part of a routine general medical examination Hyperlipidemia, unspecified hyperlipidemia type COMPREHENSIVE METABOLIC PANEL Routine 10/23/2024 Laboratory examination ordered as part of a routine general medical examination Hyperlipidemia, unspecified hyperlipidemia type Prediabetes HEMOGLOBIN A1C Routine 10/23/2024 Laboratory examination ordered as part of a routine general medical examination Prediabetes SCANNED - LABS 10/23/2024 SCANNED - MAMMO 03/29/2022 HEPATITIS C ANTIBODY Routine 03/22/2022 10:29 AM EST Need for hepatitis C screening test from Last 3 Months or Most Recently Relevant to Health Maintenance Results * LABS SCANNED (10/23/2024) us Kosta Mo MD LAB BLOOD ORDERABLES Final Res ult * CBC & Differential (10/23/2024) Blood Leeann Lopez APRN LAB BLOOD ORDERABLES Fin al Result Performing Organization Address [facility] Co de Phone Number [facility]
[address] [place] [address], [place] [phone] * Hemoglobin A1c (10/23/2024) Blood Leeann Lopez APRN LAB BLOOD ORDERABLES Fin al Result Performing Organization Address City/[facility]/ZIP Co de Phone Number [facility]
[address] [place] [address], [place] [phone] * Lipid Panel (10/23/2024) Blood Leeann Lopez APRN LAB BLOOD ORDERABLES Fin al Result Performing Organization Address [facility] Co de Phone Number [facility]
[address] [place] [id number], [place] [phone] * Comprehensive Metabolic Panel (10/23/2024) Blood Leeann Lopez APRN LAB BLOOD ORDERABLES Fin al Result [facility]
[address] [place] [address], * SCANNED - MAMMO (03/29/2022) Anatomical Region Laterality Modality Other Kosta Mo MD CHART REVIEW TABS Final Res ult * Hepatitis C Antibody (03/22/2022 10:29 AM EST) Hep C Virus Ab <0.1 0.0 - 0.9 s/co ratio [facility] Comment: Negative: < 0.8 Indeterminate: 0.8 - 0.9 Positive: > 0.9 HCV antibody alone does not differentiate between previous resolved infection and active infection. The CDC and current clinical guidelines recommend that a positive HCV antibody result be followed up with an HCV RNA test to support the diagnosis of acute HCV infection. [facility] offers Hepatitis C Virus (HCV) RNA, Diagnosis, AVINASH (480047) and Hepatitis C Virus (HCV) Antibody with reflex to Quantitative Real-time PCR ([id number]). Blood Structure of left upper limb / Unknown 03/22/2022 10:29 AM EST 03/22/2022 Comment:Blood Release to pat i Narrative [facility] (AMBULATORY) - 03/23/2022 10:07 AM EST Performed at: - [address] [id number] Trigonometry Tutor: David Edwards PhD, Phone: [phone] Kosta Mo MD LAB BLOOD ORDERABLES Final Res ult [facility] (AMBULATORY) [address] [place] [address], [place] [phone] [facility] [address] [place] [address], [place] [phone] from Last 3 Months or Most Recently Relevant to Health [place] [address] [facility] PPO Care Teams Nitrator Operator Relationship Specialty Start Date End Date Kosta Mo MD [address] [place] [address] [place] [address] PCP - General Internal Medicine 09/18/18
== END 2024-12-23 23:59 | disposition home or self-care (01) ==
LOC: LAB.DROPOF 12-25 12:12
PROVIDERS: PCP Internal Medicine; Visit Provider Internal Medicine
DX: Z76.89 Persons encountering health services in other specified circumstances (principal)
CPT/HCPCS: 80053

== ENCOUNTER 2025-01-01 16:06 | Outpatient (CLI) | payer BC, SELFPAY ==
--- OUTSIDE RECORDS SUMMARY | 2020-12-27 16:30 | XMS_ITS | Encounter Summary ---
Author Organization [facility] Address [address] [place] [address] Care Team Providers Care Corn Detasseler Machine Operator Name Role Phone Kosta Mo MD Primary Care Provider [phone] Reason for Visit * Diagnostic Imaging (Routine) - Closed Specialty Diagnoses / Procedures Referred By Contac t Referred To Contact Radiology Diagnoses Papillary thyroid carcinoma Procedures US Thyroid Garrick Wayne MD [address] [address] Phone: tel: fax: [facility] [address] [facility] [address] [place] [phone] Phone: tel: fax: Referral ID Status Reason Start Date Expiration Date Visits Re quested Visits Authorized [id number] Closed 12/27/2020 12/27/2021 1 1 Encounter Details Date Type Department Care Team (Late st Contact Info) Description 12/27/2020 4:30 PM EDT Hospital Encounter [facility] 30[address] [facility] [address] [place] [phone] Social History Tobacco Use Types Packs/Day Years Used Date Smoking Tobacco: Never Passive Smoke Exposure: Never Smokeless Tobacco: Never Alcohol Use Standard Drinks/Week Comments Never 0 (1 standard drink = 0.6 oz pur e alcohol) AUDIT-C Answer Date Recorded Q1: How often do you have a drink containing alc ohol? Never 05/11/2020 Average Number of Drinks Not on file 020 Frequency of Binge Drinking Not on file 04/14 PHQ-2 Answer Date Recorded Retired PHQ-9: Brief Depression Severity Measure Score 0 09/19/2022 PHQ-2 Answer Date Recorded Retired PHQ-9: Brief Depression Severity Measure Score 0 09/19/2022 Comments No Sex and Gender Information Value Date Recorded Sex Assigned at Not on file Legal Sex Female 3:13 PM EDT Gender Identity Not on file Sexual Orientation Not on file documented as of this encounter Plan of Treatment Upcoming Encounters Date Type Department Care Team (Late st Contact Info) Description 02/17/2025 3:45 PM EDT Office Visit [facility] END[facility] [address] [phone] Garrick Wayne MD [address] [id number] 09/15/2025 3:00 PM EDT Office Visit [facility] C[facility] [address] [place] [address] Tati Hurd APRN [address] [place] [address] documented as of this encounter Procedures Procedure Name Priority Date/Time Associated Diagnosis Comments US THYROID Routine 12/27/2020 4:30 PM EDT Papillary thyroid carcinoma documented in this encounter Results * US Thyroid (12/27/2020 4:30 PM EDT) Narrative SYSTEMGENERATED, DOCUMENTATION - 12/27/2020 4:30 PM EDT Please see performing physician's note for result. us Garrick Wayne MD [facility] [place] US ORDERABLES Final R esult documented in this encounter Visit Diagnoses Not on filedocumented in this encounter Care Teams Corn Detasseler Machine Operator Relationship Specialty Start Date End Date Kosta Mo MD [address] [place] [address] [place] [address] PCP - General Internal Medicine 09/18/18 documented as of this encounter
--- OUTSIDE RECORDS SUMMARY | 2022-01-01 16:04 | XMS_ITS | Encounter Summary ---
[facility] Address [address] [place] [address] Care Team Providers Care Ticket Writer Name Role Phone Kosta Mo MD Primary Care Provider [phone] Reason for Visit * Diagnostic Imaging (Routine) - Closed Specialty Diagnoses / Procedures Referred By Contac t Referred To Contact Radiology Diagnoses Papillary thyroid carcinoma Procedures US Thyroid Garrick Wayne MD [address] [address] Phone: tel: fax: [facility] [address] [phone] Phone: tel: fax: Referral ID Status Reason Start Date Expiration Date Visits Re quested Visits Authorized [id number] Closed 01/01/2022 01/01/2023 1 1 Encounter Details Date Type Department Care Team (Late st Contact Info) Description 01/01/2022 4:04 PM EDT Hospital Encounter [facility] 3084 [facility] [address] [place] [phone] Social History Tobacco Use Types Packs/Day [...] Description 02/17/2025 3:45 PM EDT Office Visit [facility] [address] [phone] Garrick Wayne MD [address] [phone] 09/15/2025 3:00 PM EDT Office Visit [facility] C[facility] [address] [place] [phone] Tati Hurd APRN [address] [place] [address] documented as of this encounter Procedures Procedure Name Priority Date/Time Associated Diagnosis Comments US THYROID Routine 01/01/2022 4:04 PM EDT Papillary thyroid carcinoma documented in this encounter Results * US Thyroid (01/01/2022 4:04 PM EDT) Narrative SYSTEMGENERATED, DOCUMENTATION - 01/01/2022 4:04 PM EDT Please see performing physician's note for result. us Garrick Wayne MD [facility] [place] ORDERABLES Final R esult documented in this encounter Visit Diagnoses Not on filedocumented in this encounter Care Teams Ticket Writer Relationship Specialty Start Date End Date Kosta Mo MD [address] [place] [address] [place] [address] PCP - General Internal Medicine 09/18/18 documented as of this encounter
--- OUTSIDE RECORDS SUMMARY | 2023-01-01 16:14 | XMS_ITS | Encounter Summary ---
Author [facility] Address [address] [place] [address] Care Team Providers Care Processor Grain Name Role Phone Kosta Mo MD Primary Care Provider [phone] Reason for Visit * Diagnostic Imaging (Routine) - Closed Specialty Diagnoses / Procedures Referred By Contac t Referred To Contact Radiology Diagnoses Papillary thyroid carcinoma Procedures US Thyroid Garrick Wayne MD [address] [address] Phone: tel: fax: Referral ID Status Reason Start Date Expiration Date Visits Re quested Visits Authorized [id number] Closed 01/01/2023 01/01/2024 1 1 Encounter Details Date Type Department Care Team (Late st Contact Info) Description 01/01/2023 4:14 PM EDT Hospital Encounter [facility] ENDOCR[facility] [address] [phone] Social History Tobacco Use Types Packs/Day [...] Description 02/17/2025 3:45 PM EDT Office Visit [facility] 3084 [facility] [address] [place] [address] Garrick Wayne MD 3084 [facility] [address] [place] [address] 09/15/2025 3:00 PM EDT Office Visit [facility] C[facility] [address] [place] [address] Tati Hurd APRN [address] [place] [address] documented as of this encounter Procedures Procedure Name Priority Date/Time Associated Diagnosis Comments US THYROID Routine 01/01/2023 4:14 PM EDT Papillary thyroid carcinoma documented in this encounter Results * US Thyroid (01/01/2023 4:14 PM EDT) Narrative SYSTEMGENERATED, DOCUMENTATION - 01/01/2023 4:14 PM EDT Please see performing physician's note for result. us Garrick Wayne MD [facility] US ORDERABLES Final R esult documented in this encounter Visit Diagnoses Not on filedocumented in this encounter Care Teams Processor Grain Relationship Specialty Start Date End Date Kosta Mo MD [address] [place] [address] PCP - General Internal Medicine 09/18/18 documented as of this encounter
--- OUTSIDE RECORDS SUMMARY | 2024-01-21 15:54 | XMS_ITS | Encounter Summary ---
[facility] Address [address] [place] [address] Care Team Providers Care Certified Lactation Counselor Name Role Phone Kosta Mo MD Primary Care Provider [phone] Reason for Visit * Diagnostic Imaging (Routine) - Closed Specialty Diagnoses / Procedures Referred By Contac t Referred To Contact Radiology Diagnoses Papillary thyroid carcinoma Procedures US Thyroid Garrick Wyane MD [address] [address] Phone: tel: fax: Referral ID Status Reason Start Date Expiration Date Visits Re quested Visits Authorized [id number] Closed 01/21/2024 01/20/2025 1 1 Encounter Details Date Type Department Care Team (Late st Contact Info) Description 01/21/2024 3:54 PM EDT Hospital Encounter [facility] [address] [phone] Social History Tobacco Use Types [...] PM EDT Office Visit [facility] 3084 [facility] [address] [place] [address] Garrick Wayne MD 3084 [facility] [address] [place], [place] [phone] 09/15/2025 3:00 PM EDT Office Visit [facility] C[facility] [address] [place] [address] Tati Hurd APRN [address] [place] [address] documented as of this encounter [...] on filedocumented in this encounter Care Teams Certified Lactation Counselor Relationship Specialty Start Date End Date Kosta Mo MD [address] [place] [address] [place] [address] PCP - General Internal Medicine 09/18/18 documented as of this encounter
--- OUTSIDE RECORDS SUMMARY | 2025-01-01 16:09 | XMS_ITS | Encounter Summary ---
Author Organization [facility] Address [address] [place] [address] Care Team Providers Care Registered Nurse Name Role Phone Kosta Mo MD Primary Care Provider [phone] Encounter Details Date Type Department Care Team (Late Contact Info) Description 08/28/2022 Telephone [facility] PRIMARY CARE [address] [place] [address] Kosta Mo MD [address] [place] [id number] Social History Tobacco Use Types Packs/Day Years [...] Description 02/17/2025 3:45 PM EDT Office Visit [facility] ENDOCRINOLOGY [address] [facility] [address] [place] [phone] Garrick Wayne MD [address] [address] 09/15/2025 3:00 PM EDT Office Visit [facility] CARDIOLOGY [address] [place] [address] Tati Hurd APRN [address] [place] [address] documented as of this encounter Visit Diagnoses Not on filedocumented in this encounter Care Teams Registered Nurse Relationship Specialty Start Date End Date Kosta Mo MD [address] [place] [address] PCP - General Internal Medicine 09/18/18 documented as of this encounter
--- OUTSIDE RECORDS SUMMARY | 2025-01-01 16:09 | XMS_ITS | Clinical Summary ---
Author Organization [facility] Address [address] [place] [address] Care Team Providers Care Pocket Builder Name Role Phone Kosta Mo MD Primary Care Provider [phone] Allergies Active Allergy Reactions Criticality Noted Date [...] dryness. New PAP therapy prescription sent to [facility], pressure changes to 6 to 13 cm. We will follow-up in 3 months to reassess how she is doing with pressure change. Myofascial pain 09/23/2018 DDD (degenerative disc disease), cervical 2018 Herniation of cervical inter vertebral disc with radiculopathy 09/22/2018 Encounters Date Type Department Care Team Description 10/09/2024 Refill [facility] CARDIOLOGY [address] [place] [address] Leeann Lopez APRN Med Refill from Last [...] Description 02/17/2025 3:45 PM EDT Office Visit [facility] ENDOCRINOLOGY [address] [facility] [address] [place] [phone] Garrick Wayne MD [address] [place] [address] [place] [address] 09/15/2025 3:00 PM EDT Office Visit [facility] CARDIOLOGY [address] [place] [address] Tati Hurd APRN [address] [place] [address] Health Maintenance Due Date Last [...] Completed 03/22/2022 Medical Devices Implanted Type Area Dry Cell Assembly Machine Tender Device Identifier Shelf Expiration Date Model / Serial / Lot Bone Lordotic Asr [id number] Fzd - [id number] - [id number] Implanted:Qty : 1 on 11/10/2018 by Kraig Swanson MD at [facility] Implant N/A: Spine Cervical [employer] 01/15/2021 [id number] / [id number] / [id number] Scrw St Zevo 2thrd S/Tap 3.5x13mm - [id number] Implanted:Qty : 4 on 11/10/2018 by Kraig Swanson MD at [facility] Implant N/A: Spine Cervical [employer] [id number] / / . Plt Cerv Ant Zevo 1lvl 17mm - [id number] Implanted:Qty : 1 on 11/10/2018 by Kraig Swanson MD at [facility] Implant N/A: Spine Cervical [employer] [id number] / / . Procedures Procedure Name Priority [...] ORDERABLES Fin al Result Performing Organization Address [facility] Co de Phone Number [facility]
[address] [place] [address], [place] [phone] * Hemoglobin A1c (10/23/2024) Blood Leeann Lopez APRN LAB BLOOD ORDERABLES Fin al Result Performing Organization Address City/[facility]/ZIP Co de Phone Number [facility]
[address] [place] [address], [place] [phone] * Lipid Panel (10/23/2024) Blood Leeann Lopez APRN LAB BLOOD ORDERABLES Fin al Result Performing Organization Address [facility] Co de Phone Number [facility]
[address] [place] [id number], [place] [phone] * Comprehensive Metabolic Panel (10/23/2024) Blood Leeann Lopez APRN LAB BLOOD ORDERABLES Fin al Result [facility]
[address] [place] [address], * SCANNED - MAMMO (03/29/2022) Anatomical Region [...] Hepatitis C Virus (HCV) RNA, Diagnosis, AVINASH (449017) and Hepatitis C Virus (HCV) Antibody with reflex to Quantitative Real-time PCR ([id number]). Blood Structure of left upper limb / Unknown 03/22/2022 10:29 AM EST 03/22/2022 Comment:Blood Release to pat i Narrative [facility] (AMBULATORY) - 03/23/2022 10:07 AM EST Performed at: - [address] [id number] Rn Maternity: David Edwards PhD, Phone: [phone] Kosta Mo MD LAB BLOOD ORDERABLES Final Res ult [facility] (AMBULATORY) [address] [place] [address], [place] [phone] [facility] [address] [place] [address], [place] [phone] from Last 3 Months or Most Recently Relevant to Health [place] [address] [facility] PPO Care Teams Pocket Builder Relationship Specialty Start Date End Date Kosta Mo MD [address] [place] [address] [place] [address] PCP - General Internal Medicine 09/18/18
--- OUTSIDE RECORDS SUMMARY | 2025-01-01 16:09 | XMS_ITS | Referral Summary ---
Author Organization [facility] ([place], [place], [place], [place]) Address [address] [place] [address] Care Team Providers Care Straight Tooth Gear Generator Operator Name Role Phone Unavailable Primary Care [...]
--- OUTSIDE RECORDS SUMMARY | 2025-01-01 16:09 | XMS_ITS | Clinical Summary ---
Author Organization [facility] ([place], [place], [place], [place]) Address [address] [place] [address] Care Team Providers Care Bed Bug Exterminator Name Role Phone Unavailable Primary Care Provider [...]
== END 2025-01-01 23:59 | disposition home or self-care (01) ==
LOC: RAD 16:07
PROVIDERS: PCP Internal Medicine; Visit Provider Internal Medicine
DX: Z12.31 Encounter for screening mammogram for malignant neoplasm of breast (principal)
CPT/HCPCS: 77063; 77067